=== PATIENT | female | born 1955 | race Caucasian/White ===

== ENCOUNTER 2021-01-04 22:59 | Emergency (ER) | payer MEDICARE ==
[2021-01-05] MEDS ORDERED: PERCOCET 5-3251 EACH PO (06:43)
== END 2021-01-05 07:19 | disposition home or self-care (01) ==
LOC: FER 22:59
DX: S42.252A Displaced fracture of greater tuberosity of left humerus, initial encounter for closed fracture (principal); S22.32XA Fracture of one rib, left side, initial encounter for closed fracture; S00.83XA Contusion of other part of head, initial encounter; S80.02XA Contusion of left knee, initial encounter; S60.812A Abrasion of left wrist, initial encounter; M54.2 Cervicalgia; M54.6 Pain in thoracic spine; Z88.5 Allergy status to narcotic agent; Z88.6 Allergy status to analgesic agent; Z79.899 Other long term (current) drug therapy; W01.0XXA Fall on same level from slipping, tripping and stumbling without subsequent striking against object, initial encounter; Y92.009 Unspecified place in unspecified non-institutional (private) residence as the place of occurrence of the external cause
CPT/HCPCS: 70450; 71101; 71250; 72125; 72128; 72131; 72170; 73030; 73060; 73070; 73110; 73200; 73564; 73590; 73600; 94010; J1170; J2405